=== PATIENT | female | born 1960 | race Caucasian/White ===

== ENCOUNTER 2024-10-06 08:46 | Outpatient (CLI) | payer MEDICARE, OTHER ==
[2024-10-06] MEDS ORDERED: Iopamidol 370 76% 100 ML VIAL ONE (10:46)
== END 2024-10-06 08:47 | disposition home or self-care (01) ==
LOC: CT 08:46
PROVIDERS: ATTEND Urology
DX: R31.0 Gross hematuria (principal)
CPT/HCPCS: 36415; 74178; 82565; Q9967